=== PATIENT | female | born 1950 | race Caucasian/White ===

== ENCOUNTER 2021-06-02 06:27 | Day surgery (SDC) | payer MEDICARE ==
[2021-05-31 14:05] VITALS: BMI 41.5
[~2021-06-02 06:27] MED LIST: LACTATED RINGERS 1,000 ML IV SCH
[2021-06-02 07:29] VITALS: TEMP 97.5
[2021-06-02] MEDS ORDERED: LACTATED RINGERS 1,000 ML IV ONE (07:51)
[2021-06-02] MEDS ORDERED: PROPOFOL 10 MG/ML 20 ML VIAL IV ONE (07:51)
[2021-06-02 07:54] LABS: Glucose,Whole Blood 146 mg/dL (75-99)
--- NOTE | 2021-06-02 08:14 | P.PCN ---
Date of Procedure: 06/02/21 Procedure(s) Performed: BRIEF HISTORY: Patient is a 70-year-old pleasant white female scheduled for an elective colonoscopy as a part of screening for colon cancer as well as family history of colon cancer. Her father was diagnosed with colon cancer at age 50. PROCEDURE PERFORMED: Colonoscopy with biopsy. PREOPERATIVE DIAGNOSIS: Screening for colon cancer and family history of colon cancer. IV sedation per Anesthesia. PROCEDURE: After informed consent was obtained, the patient, was brought into the endoscopy unit. IV sedation was administered by Anesthesia under continuous monitoring. Digital rectal examination was normal. Initially the Olympus CF-160 flexible video colonoscope was then inserted in the rectum, gradually advanced into the cecum without any difficulty. Careful examination was performed as the scope was gradually being withdrawn. Ileocecal valve and the appendiceal orifice were visualized and appeared normal. Prep was excellent. Mucosa of the cecum, appeared normal. In the ascending colon there was a 3 mm polyp that was removed by cold biopsy. Rest of the ascending colon, transverse colon, descending colon, sigmoid colon, and rectum appeared normal. Retroflexion was performed in the rectum and no lesions were seen. The patient tolerated the procedure well. IMPRESSION: 3 mm ascending colon polyp status post cold biopsy Rest of the colon appeared normal RECOMMENDATIONS: Findings of this examination were discussed with the patient well as her family. He was advised to follow with the biopsy results. She can have a repeat colonoscopy in 5 years because of the family history of colon cancer..
[2021-06-02 08:33] VITALS: BP 128/78; PULSE 90; RESP 16
== END 2021-06-02 08:50 | disposition home or self-care (01) ==
LOC: ORWHC2ENDO 06:27
PROVIDERS: ATTEND Internal Medicine Gastroenterology
DX: Z80.0 Family history of malignant neoplasm of digestive organs (principal); Z12.11 Encounter for screening for malignant neoplasm of colon; D12.2 Benign neoplasm of ascending colon
CPT/HCPCS: 45380; 88305; J2704